=== PATIENT | female | born 1950 ===

== ENCOUNTER 2017-04-06 07:44 | Outpatient (CLI) | payer MEDICARE ==
--- NOTE | 2017-04-06 09:58 | XRay Report ---
BILATERAL HIP RADIOGRAPHS WITH PELVIS INDICATION: Hip pain. COMPARISON: None similar at this institution. FINDINGS: AP pelvic radiograph with frog-leg projections of both hips demonstrate normal femoral head contours. Mild bilateral acetabular degenerative spurring and degenerative hip joint space narrowing. Intact SI and hip articulations. Nonobstructive bowel gas pattern. Mild lower lumbar degenerative changes. Few iliac enthesophytes incidentally noted. CONCLUSION: No acute radiographic abnormality with mild degenerative changes, as described. Thank you for the opportunity to participate in this patient's care.
== END 2017-04-06 07:45 | disposition home or self-care (01) ==
LOC: SPVIMAG 07:44
PROVIDERS: ATTEND Orthopaedic Surgery
DX: M16.0 Bilateral primary osteoarthritis of hip (principal); M47.896 Other spondylosis, lumbar region
CPT/HCPCS: 73521